=== PATIENT | male | born 2000 | race Caucasian/White ===

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

== ENCOUNTER 2020-07-24 17:16 | Emergency (ER) | payer SELFPAY ==
[~2020-07-24] VITALS: Ht 172.7 cm; Wt 60.9 kg
[~2020-07-24 17:16] MED LIST: IBUP-1060 PO; ONDA4TAB7 PO
[2020-07-24 18:17] VITALS: BP 150/79
[2020-07-24] MEDS ORDERED: HYDROcodone/APAP 5/325MG 1 TAB TABLET PO ONE (19:15)
[2020-07-24] MEDS ORDERED: LIDOCAINE 1% Multi-Dose 20 ML VIAL. INJ ONE (19:15)
--- NOTE | 2020-07-24 19:19 | PHYS DOC ---
Past Medical History Past Medical History: No Pertinent History Past Surgical History: No Surgical History Smoking Status: Current Every Day Smoker Alcohol Use: Occasionally Drug Use: None General Adult EDM: Chief Complaint: ABSCESS HPI: HPI: Patient is a 20 year old male who presents with patient has a right upper inner abscess that is oblong, soft and tender and reddened but there is no associated cellulitis. Patient states he has noticed it for the last couple of days. States he is rating his sharp/burning and tenderness pain at a 8 out of 10. His only other history is a smoker. Review of Systems: Review of Systems: Constitutional: Denies fever or chills. [] Eyes: Denies change in visual acuity. [] HENT: Denies nasal congestion or sore throat. [] Respiratory: Denies cough or shortness of breath. [] Cardiovascular: Denies chest pain or edema. [] GI: Denies abdominal pain, nausea, vomiting, bloody stools or diarrhea. [] : Denies dysuria. [] Musculoskeletal: Denies back pain or joint pain. [] Integument: Denies rash. +Right buttock abscess [] Neurologic: Denies headache, focal weakness or sensory changes. [] Endocrine: Denies polyuria or polydipsia. [] Lymphatic: Denies swollen glands. [] Psychiatric: Denies depression or anxiety. [] Heart Score: Risk Factors: Risk Factors: DM, Current or recent (<one month) smoker, HTN, HLP, family history of CAD, obesity. Risk Scores: Score 0 - 3: 2.5% MACE over next 6 weeks - Discharge Home Score 4 - 6: 20.3% MACE over next 6 weeks - Admit for Clinical Observation Score 7 - 10: 72.7% MACE over next 6 weeks - Early Invasive Strategies Current Medications: Current Medications Medications (Trade) Dose Ordered Sig/Sang Start Time Stop Time Status Last Admin Dose Admin Acetaminophen/ Hydrocodone Bitart (Lortab 5/325) 1 tab 1X ONCE 07/24/20 19:15 07/24/20 19:16 Lidocaine HCl (Lidocaine 1% 20ml Vial) 20 ml 1X ONCE 07/24/20 19:15 07/24/20 19:16 Allergies: Allergies: Allergies Coded Allergies Type Severity Reaction Last Updated Verified No Known Drug Allergies 08/31/16 No Physical Exam: PE: Constitutional: Well developed, well nourished, no acute distress, non-toxic appearance. [] HENT: Normocephalic, atraumatic, bilateral external ears normal, oropharynx moist, no oral exudates, nose normal. [] Eyes: PERRLA, EOMI, conjunctiva normal, no discharge. [] Neck: Normal range of motion, no tenderness, supple, no stridor. [] Cardiovascular:Heart rate regular rhythm, no murmur [] Lungs & Thorax: Bilateral breath sounds clear to auscultation [] Abdomen: Bowel sounds normal, soft, no tenderness, no masses, no pulsatile masses. [] Skin: Warm, dry, no erythema, no rash. Right buttock abscess [] Back: No tenderness, no CVA tenderness. [] Extremities: No tenderness, no cyanosis, no clubbing, ROM intact, no edema. [] Neurologic: Alert and oriented X 3, normal motor function, normal sensory function, no focal deficits noted. [] Psychologic: Affect normal, judgement normal, mood normal. [] Current Patient Data: Vital Signs: Vital Signs Date Time Temp Pulse Resp B/P (MAP) Pulse Ox O2 Delivery O2 Flow Rate FiO2 07/24/20 18:17 98.8 72 18 150/79 (102) 99 Room Air 98.8 EKG: EKG: [] Radiology/Procedures: Radiology/Procedures: [] Course & Med Decision Making: Course & Med Decision Making Pertinent Labs and Imaging studies reviewed. (See chart for details) See HPI. Afebrile. Patient has a very small healing flat abscess that he states has been healing and he has been putting antibiotic ointment over it. Patient will be placed on Keflex antibiotic. I&D Location: Right upper buttock and it is oblong, soft and fluctuant. Tender. Anesthesia: 1% lidocaine Scalpel size: #11 Skin: Abscess is reddened but there is no associated cellulitis and there is no drainage. Drainage: moderate foul smelling white fluid Packing: None Patient tolerated the procedure well with no complications. The area was prepped and draped in usual sterile fashion. Area was cleaned with chloehexidine prior to procedure. Return for signs and symptoms of infection education given. Patient to return in 48 hours for wound recheck. [] Dragon Disclaimer: Dragon Disclaimer: This electronic medical record was generated, in whole or in part, using a voice recognition dictation system. Departure Departure Impression: Primary Impression: Abscess Disposition: 01 DC HOME SELF CARE/HOMELESS Condition: STABLE Referrals: JARERD LEWIS APRN (PCP) Patient Instructions: Abscess, Care After, Abscess, Perineal, Sitz Bath Additional Instructions: Return in 48 hours for a wound recheck or follow-up with your primary care physician or the surgeon I have referred you to. Keep gauze over the area. Use sitz bath's. Take medication as prescribed and with food. Do not drive or drink alcohol with the medication placing you on. Scripts Hydrocodone Bit/Acetaminophen (HYDROCODONE-APAP 5-325 ) 1 Tab Tablet 1 TAB PO PRN Q6HRS PRN for PAIN, #12 TAB 0 Refills Prov: SHARONDA CARR APRN 07/24/20 Cephalexin (CEPHALEXIN) 500 Mg Capsule 1 CAP PO QID, #40 CAP Prov: SHARONDA CARR APRN 07/24/20 SHARONDA CARR APRN Jul 24, 2020 19:19
[2020-07-24] MEDS ORDERED: CEPH500C PO (20:08)
[2020-07-24] MEDS ORDERED: HYDR-2761 PO (20:08)
== END 2020-07-24 20:21 | disposition home or self-care (01) ==
LOC: ER 17:16
DX: L02.31 Cutaneous abscess of buttock (principal); F17.200 Nicotine dependence, unspecified, uncomplicated
CPT/HCPCS: 10060; 99283; J3490